=== PATIENT | male | born 1975 | race Caucasian/White ===

== ENCOUNTER → 2018-03-28 | Outpatient (REF) | payer BC ==
[2018-03-30 14:15] LABS: AMPHETAMINE SCREEN, URINE Negative ng/mL (Cutoff=1000); BARBITURATES SCREEN, URINE Negative ng/mL (Cutoff=200); BENZODIAZEPINES, URINE SCREEN Negative ng/mL (Cutoff=200); CANNABINOID SCREEN, URINE Negative ng/mL (Cutoff=20); COCAINE SCREEN, URINE Negative ng/mL (Cutoff=300); CREATININE, URINE 91.6 mg/dL (20.0-300.0); FENTANYL URINE SCREEN Negative pg/mL (Cutoff=2000); METHADONE, URINE SCREEN Negative ng/mL (Cutoff=300); OPIATE SCREEN, URINE Negative ng/mL (Cutoff=300); OXYCODONE, SCREEN, URINE Negative ng/mL (Cutoff=100); PCP SCREEN, URINE Negative ng/mL (Cutoff=25); SPECIFIC GRAVITY, URINE 1.013 (.); pH, URINE 5.9 (4.5-8.9)
== END ==
LOC: M SFHCLACO 14:39
DX: M17.12 Unilateral primary osteoarthritis, left knee (principal); F11.90 Opioid use, unspecified, uncomplicated
CPT/HCPCS: 80307